=== PATIENT | female | born 1995 | race Caucasian/White ===

== ENCOUNTER 2017-04-04 14:14 | Emergency (ER) | payer MEDICAID ==
--- NOTE | 2017-04-04 14:22 | ED Physician Documentation ---
PD HPI FEMALE - Stated complaint Stated Complaint: FEMALE /UNK WK PREG - History obtained from History obtained from: Patient - History of Present Illness Timing - onset: Today Timing - duration: Hours Timing - details: Abrupt onset, Still present Associated symptoms: Pelvic pain, Vaginal bleeding. No: Vaginal discharge, Genital sore/lesion, Dysuria Contributing factors: (LMP early March and took home test in past couple days that were positive. 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 denies: Dysuria, Frequency, Discharge Skin: denies: Rash PD PAST MEDICAL HISTORY - Past Medical History FINAL FINISHER: None - Present Medications Home Medications: Ambulatory Orders Medication Instructions Recorded Confirmed HYDROcod/ACETAM 5/325 [[place] 5/325] 1 tab PO Q6H PRN #15 tablet 04/04/17 Ondansetron Odt [Zofran] 4 mg TL Q6H PRN #15 tablet 04/04/17 - Allergies Allergies/Adverse Reactions: Allergies Allergy/AdvReac Type Severity Reaction Status Date / Time meperidine HCl * Allergy Hives Verified 04/04/17 14:23 [From Demerol] morphine Allergy Hives Verified 04/04/17 14:23 PD ED PE NORMAL - Vitals Vital signs reviewed: Yes - General General: Alert and oriented X 3, No acute distress, Well developed/nourished - Cardiac Cardiac: RRR, No murmur - Respiratory Respiratory: Clear bilaterally - Abdomen Abdomen: Soft, Non tender, Non distended, No organomegaly - Female Female : Deferred - Rectal Rectal: Deferred - Back Back: No CVA TTP - Derm Derm: Normal color Results - Vitals Vitals: Oxygen O2 Source Room air - Labs Labs: Laboratory Tests 04/04/17 04/04/17 04/04/17 14:27 15:06 15:06 WBC 9.3 RBC 4.39 Hgb 14.2 Hct 39.9 MCV 91.0 MCH 32.3 H MCHC 35.5 RDW 11.7 L Plt Count 281 MPV 8.7 Neut # 7.1 H Lymph # 1.6 [place] # 0.5 Eos # 0.1 Baso # 0.0 Absolute Nucleated RBC 0.01 Nucleated RBCs 0.1 HCG, Quant 64.16 Urine Color YELLOW Urine Clarity CLEAR Urine pH 6.0 Ur Specific [place] 1.025 Urine Protein NEGATIVE Urine Glucose (UA) NEGATIVE Urine Ketones NEGATIVE Urine Occult Blood MODERATE H Urine Nitrite NEGATIVE Urine Bilirubin NEGATIVE Urine Urobilinogen 0.2 (NORMAL) Ur Leukocyte Esterase NEGATIVE Urine RBC 0-5 Urine WBC 0-3 Ur Squamous Epith Cells MOD Squamous H Urine Bacteria None Seen Ur Microscopic Review INDICATED Urine Culture Comments NOT INDICATED Urine HCG, Qual POSITIVE Blood Type 04/04/17 15:06 WBC RBC Hgb Hct MCV MCH MCHC RDW Plt Count MPV Neut # Lymph # [place] # Eos # Baso # Absolute Nucleated RBC Nucleated RBCs HCG, Quant Urine Color Urine Clarity Urine pH Ur Specific [place] Urine Protein Urine Glucose (UA) Urine Ketones Urine Occult Blood Urine Nitrite Urine Bilirubin Urine Urobilinogen Ur Leukocyte Esterase Urine RBC Urine WBC Ur Squamous Epith Cells Urine Bacteria Ur Microscopic Review Urine Culture Comments Urine HCG, Qual Blood Type B POSITIVE - Rads (name of study) pelvic U/S Radiology: Prelim report reviewed (empty uterus; adnexa normal. ) PD MEDICAL DECISION MAKING - ED course Complexity details: reviewed results, considered differential (given the very low quant with empty uterus, likely miscarriage. Not having threatening amount of bleeding. Will see how she does over 1-2 days. Repeat HCG in 2-[address] Hoffman will see her Friday. Still want to see if rising or lowering quant. ) , d/w patient, d/w obiee consultant (Dr. Hoffman) Departure - Departure Disposition: Home, Self Care Clinical Impression: Early stage of , Threatened miscarriage in early Condition: Stable Record reviewed to determine appropriate education?: Yes Instructions: ED Miscarriage Poss Follow-Up: Cedrick Hoffman MD [Provider Admit Priv/Credential] - Prescriptions: HYDROcod/ACETAM 5/325 [[place] 5/325] 1 tab PO Q6H PRN #15 tablet PRN Reason: Pain Ondansetron Odt [Zofran] 4 mg TL Q6H PRN #15 tablet PRN Reason: Nausea / Vomiting Comments: Drink lots of fluids. Tylenol if needed for mild pains. Add hydrocodone if needed. Ondansetron if needed for nausea. Have your blood test for the hCG done in 2-3 days or at least before the category specialist visit on Friday. Call the [facility] office Friday morning and tell them you are in the ER and Dr. Hoffman wants to see you on Friday. Return sooner if you have worsening bleeding or cramping, vomiting, fevers, other concerns. Rest today and tomorrow. Your ultrasound does not show any in the uterus right now but that can be because it is too early on in the or because there has been a miscarriage. The repeat blood test and time will differentiate that. Forms: Activity restrictions Discharge Date/Time: 04/04/17 17:08
[2017-04-04 14:37] LABS: BILIRUBIN,URINE NEGATIVE (NEGATIVE)
[2017-04-04 14:44] LABS: UA w/ MICROSCOPIC CHARGE YES
[2017-04-04 14:45] LABS: HCG UR QUAL POSITIVE
[2017-04-04 14:46] LABS: UR CULTURE IF IND NOT INDICATED; WBC,URINE 0-3 /HPF (0-5)
[2017-04-04] MEDS ORDERED: ONDANSETRON 4 MG/2 ML VIAL IVP STA (14:48)
[2017-04-04] MEDS ORDERED: HYDROmorphone 1 MG/ML SYRINGE IVP STA (14:48)
[2017-04-04] MEDS ORDERED: ONDANSETRON 4 MG/2 ML VIAL ONE (15:00)
[2017-04-04] MEDS ORDERED: HYDROmorphone 1 MG/ML SYRINGE ONE (15:00)
[2017-04-04] MEDS ORDERED: SODIUM CHLORIDE FLUSH 0.9% 10 ML SYRINGE IVP ONE (15:01)
[2017-04-04 15:23] LABS: BASOPHILS % (AUTO) 0.1 %; EOSINOPHILS # (AUTO) 0.1 10^3/uL (0.0-0.7); EOSINOPHILS % (AUTO) 0.6 %; HCT - HEMATOCRIT 39.9 % (37.0-47.0); HGB - HEMOGLOBIN 14.2 g/dL (12.0-16.0); LYMPHOCYTES # (AUTO) 1.6 10^3/uL (1.5-3.5); LYMPHOCYTES % (AUTO) 17.2 %; MEAN CORPUSCULAR HEMOGLOBIN 32.3 pg (27.0-31.0); MEAN CORPUSCULAR HGB CONC 35.5 g/dL (32.0-36.0); MEAN PLATELET VOLUME 8.7 fL (7.9-10.8); MONOCYTES # (AUTO) 0.5 10^3/uL (0.0-1.0); MONOCYTES % (AUTO) 5.9 %; NEUTROPHILS # (AUTO) 7.1 10^3/uL (1.5-6.6); NEUTROPHILS % (AUTO) 76.2 %; NUCLEATED RED BLOOD CELLS AUTO 0.1 /100WBC; RED BLOOD COUNT 4.39 10^6/uL (4.20-5.40); RED CELL DISTRIBUTION WIDTH 11.7 % (12.0-15.0); UNCORRECTED WHITE BLOOD COUNT 9.3 x10^3/uL; WHITE BLOOD COUNT 9.3 x10^3/uL (4.8-10.8)
--- NOTE | 2017-04-04 16:34 | Ultrasound Preliminary Report ---
Exam: US OB TRANSVAGINAL IMPRESSION: Empty uterus. Differential considerations include early IUP, recent spontaneous , and nonvisualized ectopic . Follow-up quantitative hCG is recommended with ultrasound as in dicated. [facility] SITE ID: [id number]
--- NOTE | 2017-04-04 16:37 | Ultrasound Report ---
EXAM: PELVIC ULTRASOUND EXAM DATE: 04/04/2017 04:03 PM. CLINICAL HISTORY: Early preg with vag bleeding/abd pain. HCG 64. COMPARISON: None. TECHNIQUE: Realtime transabdominal pelvic scan performed to identify the uterus and adnexa and as an overview of other pelvic structures, followed by transvaginal scan to provide greater detail of the u terus and adnexa, with static image documentation. FINDINGS: Uterus: 7.2 x 3.3 x 3.7 cm, volume 46.6 cc. Anteverted position. Normal overall size and echotexture. Masses: None. Endometrium: 2.9 mm. Normal. Empty endometrial cavity. Cervix: Unremarkable. Right Ovary: 3.0 x 1.7 x 2.2 cm, volume 5.7 cc. Normal echotexture and blood flow. Left Ovary: 2.6 x 1.8 x 2.2 cm, volume 5.1 cc. Normal echotexture and blood flow. Free Fluid: Trace free fluid. Other: None. IMPRESSION: Empty uterus. Differential considerations include early IUP, recent spontaneous , and nonvisualized ectopic . Follow-up quantitative hCG is recommended with ultrasound as in dicated. [facility] Referring Provider Line: [phone] SITE ID: [id number]
[2017-04-04 17:00] VITALS: BP 100/63
--- NOTE | 2017-04-08 00:43 | Ultrasound Report ---
EXAM: PELVIC ULTRASOUND EXAM DATE: 04/08/2017 12:05 AM. CLINICAL HISTORY: Vaginal bleeding. Rising hcg. COMPARISON: None. TECHNIQUE: Realtime transabdominal pelvic scan performed to identify the uterus and adnexa and as an overview of other pelvic structures, followed by transvaginal scan to provide greater detail of the u terus and adnexa, with static image documentation. FINDINGS: Uterus: 7.2 x 3.3 x 3.7 cm, volume 46.6 cc. Anteverted position. Normal overall size and echotexture. Masses: None. Endometrium: 3 mm. Normal. Cervix: Unremarkable. Right Ovary: 3.0 x 1.7 x 2.2 cm, volume 5.7 cc. Normal echotexture and blood flow. Corpus luteum note d 1.8 x 1.2 x 1.5 cm. Left Ovary: 2.6 x 1.8 x 2.2 cm, volume 5.1 cc. Normal echotexture and blood flow. Free Fluid: None. Other: None. IMPRESSION: Normal pelvic ultrasound. [facility] Referring Provider Line: [phone] SITE ID: [id number]
== END 2017-04-04 17:08 | disposition home or self-care (01) ==
LOC: ED 14:14
DX: O20.0 Threatened abortion (principal); Z3A.01 Less than 8 weeks gestation of pregnancy
CPT/HCPCS: 36415; 76801; 76817; 81001; 81025; 84702; 85025; 86900; 86901; 96374; 96375; 99283; 99284; J1170; 81003; 87086

== ENCOUNTER 2017-04-07 21:32 | Emergency (ER) | payer MEDICAID ==
[2017-04-07 22:28] LABS: BASOPHILS % (AUTO) 0.4 %; EOSINOPHILS % (AUTO) 0.3 %; HCT - HEMATOCRIT 40.6 % (37.0-47.0); HGB - HEMOGLOBIN 14.1 g/dL (12.0-16.0); LYMPHOCYTES # (AUTO) 1.8 10^3/uL (1.5-3.5); LYMPHOCYTES % (AUTO) 23.8 %; MEAN CORPUSCULAR HEMOGLOBIN 31.9 pg (27.0-31.0); MEAN CORPUSCULAR HGB CONC 34.8 g/dL (32.0-36.0); MEAN CORPUSCULAR VOLUME 91.6 fL (81.0-99.0); MEAN PLATELET VOLUME 8.7 fL (7.9-10.8); MONOCYTES # (AUTO) 0.4 10^3/uL (0.0-1.0); MONOCYTES % (AUTO) 5.8 %; NEUTROPHILS # (AUTO) 5.1 10^3/uL (1.5-6.6); NEUTROPHILS % (AUTO) 69.7 %; NUCLEATED RED BLOOD CELLS AUTO 0.1 /100WBC; RED BLOOD COUNT 4.43 10^6/uL (4.20-5.40); RED CELL DISTRIBUTION WIDTH 11.9 % (12.0-15.0); UNCORRECTED WHITE BLOOD COUNT 7.4 x10^3/uL; WHITE BLOOD COUNT 7.4 x10^3/uL (4.8-10.8)
--- NOTE | 2017-04-08 00:17 | Ultrasound Preliminary Report ---
Exam: US OB TRANSVAGINAL IMPRESSION: Normal pelvic ultrasound. [facility] SITE ID: [id number]
--- NOTE | 2017-04-08 00:17 | Ultrasound Preliminary Report ---
Exam: US OB First Trimester Please link to associated report. SITE ID: [id number]
--- NOTE | 2017-04-08 00:19 | Ultrasound Report ---
EXAM: PELVIC ULTRASOUND EXAM DATE: 04/08/2017 12:05 AM. CLINICAL HISTORY: Vaginal bleeding. Rising hcg. COMPARISON: None. TECHNIQUE: Realtime transabdominal pelvic scan performed to identify the uterus and adnexa and as an overview of other pelvic structures, followed by transvaginal scan to provide greater detail of the u terus and adnexa, with static image documentation. FINDINGS: Uterus: 7.2 x 3.3 x 3.7 cm, volume 46.6 cc. Anteverted position. Normal overall size and echotexture. Masses: None. Endometrium: 3 mm. Normal. Cervix: Unremarkable. Right Ovary: 3.0 x 1.7 x 2.2 cm, volume 5.7 cc. Normal echotexture and blood flow. Corpus luteum note d 1.8 x 1.2 x 1.5 cm. Left Ovary: 2.6 x 1.8 x 2.2 cm, volume 5.1 cc. Normal echotexture and blood flow. Free Fluid: None. Other: None. IMPRESSION: Normal pelvic ultrasound. [facility] Referring Provider Line: [phone] SITE ID: [id number]
[2017-04-08 00:23] LABS: BILIRUBIN,URINE NEGATIVE (NEGATIVE)
[2017-04-08 00:25] LABS: UA w/ MICROSCOPIC CHARGE YES
--- NOTE | 2017-04-08 00:34 | ED Physician Documentation ---
PD HPI FEMALE - Stated complaint Stated Complaint: 4 WEEKS/BLEEDING - Chief complaint Chief Complaint: General - History obtained from History obtained from: Patient - History of Present Illness Timing - onset: How many days ago (4) Timing - details: Gradual onset Associated symptoms: Vaginal bleeding. No: Vaginal discharge, Genital sore/ lesion Contributing factors: OB-TESTER ARMATURE OR FIELDS History: P (0), Miscarriage(s) (1) Similar symptoms before: Work up / diagnostics Recently seen: Emergency Dept - Additional information Additional information: Patient is a female 4 weeks by dates who is presenting to the emergency department for vaginal bleeding. patient was in the ED a few days ago, hcg was 67 and ultrasound was inconclusive. patient returned today because the bleeding had stopped but now was back. Review of Systems Constitutional: denies: Fever, Chills Eyes: denies: Decreased vision, Photophobia Ears: denies: Ear pain, Drainage/discharge Nose: denies: Rhinorrhea / runny nose, Congestion Throat: reports: Reviewed and negative Cardiac: denies: Chest pain / pressure Respiratory: denies: Dyspnea, Cough GI: reports: Abdominal Pain. denies: Nausea, Vomiting, Constipation, Diarrhea : reports: Dysuria, Frequency, Hematuria, Vaginal bleeding Skin: denies: Rash, Lesions Neurologic: denies: Generalized weakness, Focal weakness, Near syncope, Altered mental status Immunocompromised: denies: Immunocompromised PD PAST MEDICAL HISTORY - Past Medical History TESTER ARMATURE OR FIELDS: None - Past Surgical History General: Appendectomy /TESTER ARMATURE OR FIELDS: Other - Present Medications Home Medications: Ambulatory Orders Medication Instructions Recorded Confirmed HYDROcod/ACETAM 5/325 [[place] 5/325] 1 tab PO Q6H PRN #15 tablet 04/04/17 Ondansetron Odt [Zofran] 4 mg TL Q6H PRN #15 tablet 04/04/17 04/07/17 - Allergies Allergies/Adverse Reactions: Allergies Allergy/AdvReac Type Severity Reaction Status Date / Time meperidine HCl * Allergy Hives Verified 04/04/17 14:23 [From Demerol] morphine Allergy Hives Verified 04/04/17 14:23 - Social History Does the pt smoke?: No Smoking Status: Never smoker Does the pt drink ETOH?: No Does the pt have substance abuse?: No - Immunizations Immunizations are current?: Yes PD ED PE NORMAL - Vitals Vital signs reviewed: Yes - General General: Alert and oriented X 3, No acute distress - HEENT HEENT: Atraumatic, PERRL - Neck Neck: Supple, no meningeal sign - Cardiac Cardiac: RRR, No murmur - Respiratory Respiratory: No respiratory distress - Abdomen Abdomen: Soft, Non tender, Non distended - Female Female : Deferred - Derm Derm: Normal color, Warm and dry, No rash - Extremities Extremities: No deformity, No edema, No calf tenderness / cord - Neuro Neuro: Alert and oriented X 3, No motor deficit, No sensory deficit - Psych Psych: Normal mood, Normal affect Results - Vitals Vitals: Vital Signs - 24 hr 04/07/17 04/08/17 21:39 01:04 Temperature 36.1 C L 36.8 C Heart Rate 84 63 Respiratory 18 20 Rate Blood Pressure 117/76 105/69 O2 Saturation 98 98 Oxygen O2 Source Room air - Labs Labs: Laboratory Tests 04/07/17 04/07/17 04/08/17 22:19 22:19 00:08 WBC 7.4 RBC 4.43 Hgb 14.1 Hct 40.6 MCV 91.6 MCH 31.9 H MCHC 34.8 RDW 11.9 L Plt Count 299 MPV 8.7 Neut # 5.1 Lymph # 1.8 [place] # 0.4 Eos # 0.0 Baso # 0.0 Absolute Nucleated RBC 0.00 Nucleated RBCs 0.1 HCG, Quant 157.37 Urine Color DARK YELLOW Urine Clarity CLEAR Urine pH 7.0 Ur Specific [place] 1.020 Urine Protein NEGATIVE Urine Glucose (UA) NEGATIVE Urine Ketones NEGATIVE Urine Occult Blood MODERATE H Urine Nitrite NEGATIVE Urine Bilirubin NEGATIVE Urine Urobilinogen 0.2 (NORMAL) Ur Leukocyte Esterase NEGATIVE Urine RBC 0-5 Urine WBC 0-3 Ur Squamous Epith Cells MOD Squamous H Urine Bacteria None Seen Ur Microscopic Review INDICATED Urine Culture Comments NOT INDICATED - Rads (name of study) ultrasound Radiology: Final report received (no sign of intrauterine or extrauterin ) PD MEDICAL DECISION MAKING - ED course Complexity details: reviewed old records, reviewed results, re-evaluated patient , considered differential, d/w patient ED course: Patient was seen and examined at bedside. Patient's blood showed an increase in hcg so imaging was ordered. Imaging showed no sign of iup or ectopic . Patient's urine was within normal limits. Patient was given detailed discharge and follow up instructions. patient was stable for discharge with outpatient follow up and repeat beta hcg testing. Departure - Departure Disposition: 01 Home, Self Care Clinical Impression: Threatened miscarriage in early Condition: Good Instructions: ED Miscarriage Poss Follow-Up: Cedrick Ely MD [Provider Admit Priv/Credential] - Tomorrow Comments: Your diagnostics today were within normal limits. it is still difficult to say if it is a miscarriage vs early . There are no signs of ectopic at this time. You will need to follow up with the ob office this week to schedule a follow up appointment and a repeat beta hcg. You may return to the emergency department at any time if necessary for new, worsening or uncontrollable symptoms. Discharge Date/Time: 04/08/17 01:08
[2017-04-08 00:49] LABS: UR CULTURE IF IND NOT INDICATED; WBC,URINE 0-3 /HPF (0-5)
[2017-04-08 01:05] VITALS: BP 105/69
== END 2017-04-08 01:08 | disposition home or self-care (01) ==
LOC: ED 21:32
DX: O20.0 Threatened abortion (principal); Z3A.01 Less than 8 weeks gestation of pregnancy
CPT/HCPCS: 36415; 76801; 76817; 81001; 81003; 84702; 85025; 87086; 99282; 99284